=== PATIENT | female | born 1950 | race Caucasian/White ===

== ENCOUNTER 2016-09-30 06:39 | Emergency (ER) | payer MEDICARE, BC ==
[2016-09-30 07:03] VITALS: BP 100/58
--- NOTE | 2016-09-30 07:30 | EDM.PDOC ---
ED HPI GENERAL MEDICAL PROBLEM - General Chief Complaint: Eye Problems Stated Complaint: RASH IN BOTH EYES Time Seen by Provider: 09/30/16 07:00 Source of Information: Reports: Patient, RN, RN Notes Reviewed History Limitations: Reports: No Limitations - History of Present Illness INITIAL COMMENTS - FREE TEXT/NARRATIVE: Pt c/o rash around the eyes x1 week. She had blepheroplasty and once the sutures were taken out the doctor has her put cortaid cream on the upper eyelids and the next day her skin broke out with red hive like rash at the B/L eyelids, and eyebrow area. She called the eye clinic and discontinued the cortaid, and has been taking Benadryl 25mg q6hrs, but not improving. Denies pain. Reports itching. No rash anywhere else on her body. Onset: Gradual Duration: Constant, Getting Worse Location: Reports: Face Quality: Reports: Other (itching) Severity: Moderate Improves with: Reports: None Worsens with: Reports: None Context: Reports: Other (suspected topical medication) Treatments CUSTOMER PROFESSIONAL: Reports: Other (see below) Other Treatments CUSTOMER PROFESSIONAL: Benadryl - Related Data Allergies Allergy/AdvReac Type Severity Reaction Status Date / Time amoxicillin Allergy Rash Verified 09/30/16 07:04 cetirizine HCl Allergy Vomiting Verified 09/30/16 07:41 [From Zyrtec-D] clindamycin Allergy Nausea and Verified 09/30/16 07:04 Vomiting codeine Allergy Nausea Verified 09/30/16 07:04 erythromycin base Allergy Nausea Verified 09/30/16 07:04 lincomycin Allergy Nausea and Verified 09/30/16 07:04 Vomiting Penicillins Allergy Hives Verified 09/30/16 07:04 pseudoephedrine HCl Allergy Vomiting Verified 09/30/16 07:04 [From Zyrtec-D] Sulfa (Sulfonamide Allergy Rash Verified 09/30/16 07:04 Antibiotics) Home Meds: Home Meds Levothyroxine [Synthroid] 50 mcg PO ACBREAKFAST 05/16/14 [History] Magnesium 700 mg PO TID 05/16/14 [History] Potassium Chloride [Klor-Con M20] 20 meq PO TID 05/16/14 [History] Sertraline HCl [Sertraline HCl] 25 mg PO BEDTIME 05/16/14 [History] atorvaSTATin Calcium [Atorvastatin Calcium] 10 mg PO BEDTIME 05/16/14 [History] Gluc 2KCl/Chondr/Colten Hy/Hy Ac [Glucosamine & Chondroitin Cap] 1 cap PO ASDIRECTED 03/18/15 [History] L. Acidophilus/L.bulgaricus [Floranex Tablet] 1 tab PO DAILY 03/18/15 [History] Calcium Citrate/Vitamin D3 [Calcium Citrate + D] 1 tab PO DAILY 04/19/15 [ History] Cholecalciferol (Vitamin D3) [Vitamin D3] 1 tab PO DAILY 04/19/15 [History] Desonide [Desonide 0.05%] 1 squirt TOP ASDIRECTED PRN 04/19/15 [History] Multivitamins 1 tab PO DAILY 04/19/15 [History] Sertraline [Zoloft] 1 tab PO DAILY 04/19/15 [History] Past Medical History HEENT History: Reports: Other (See Below) Other HEENT History: WEARS CORRECTIVE LENSES. Impaired peripheral vison Cardiovascular History: Reports: High Cholesterol Other Cardiovascular History: HYPERLIPIDEMIA; TRICUSPID REGURGITATION Gastrointestinal History: Reports: Chronic Diarrhea Other Genitourinary History: BARTTER SYNDROME Musculoskeletal History: Reports: Arthritis Neurological History: Reports: Vertigo Psychiatric History: Reports: Anxiety, OCD Endocrine/Metabolic History: Reports: Hypothyroidism, Osteopenia Other Endocrine/Metabolic History: HYPOTHYRIODISM Other Hematologic History: B12 SERUM ELEVATION - Past Surgical History HEENT Surgical History: Reports: Tonsillectomy, Other (See Below) Other HEENT Surgeries/Procedures: Removal of excess tissue in the eye on September 05, 2016 Female Surgical History: Reports: Section Social & Family History - Tobacco Use Smoking Status *Q: Never Smoker Second Hand Smoke Exposure: No - Caffeine Use Caffeine Use: Reports: Tea - Alcohol Use Days Per Week of Alcohol Use: 0 - Recreational Drug Use Recreational Drug Use: No Drug Use in Last 12 Months: No - Living Situation & Occupation Living situation: Reports: with Family ED ROS GENERAL - Review of Systems Review Of Systems: ROS reveals no pertinent complaints other than HPI. ED EXAM GENERAL W FULL EYE - Physical Exam Exam: See Below Exam Limited By: No Limitations General Appearance: Alert, WD/WN, No Apparent Distress Eye Exam: Bilateral Eye: EOMI, Periorbital Changes, PERRL Eyelids: Bilateral: Edema (mild), Erythema (pruritic) Conjunctiva & Sclera: Bilateral: Normal Appearance Extraocular Movements: Bilateral: Intact Pupils: Normal Accommodation Pupillary Size: Bilateral: 3 mm Pupillary Reaction: Bilateral: Brisk Ears: Normal External Exam Nose: Normal Inspection Throat/Mouth: Normal Inspection Head: Atraumatic, Normocephalic Neck: Normal Inspection Respiratory/Chest: No Respiratory Distress, Normal Breath Sounds Extremities: Normal Inspection Neurological: Alert, Oriented, CN II-XII Intact, Normal Cognition, Normal Gait, No Motor/Sensory Deficits Psychiatric: Normal Affect, Normal Mood Skin Exam: Dry, Intact, Rash (periorbital erythema with mild swelling at B/L eyes) Course - Vital Signs Last Recorded V/S: Last Vital Signs Temp 36.6 C 09/30/16 06:50 Pulse 94 09/30/16 06:50 Resp 17 09/30/16 06:50 BP 100/58 L 09/30/16 06:50 Pulse Ox 100 09/30/16 06:50 Departure - Departure Time of Disposition: 07:27 Disposition: Home, Self-Care 01 Condition: good Clinical Impression: Periorbital dermatitis Contact dermatitis Qualifiers: Contact dermatitis type: unspecified Contact dermatitis trigger: unspecified trigger Qualified Code(s): L25.9 - Unspecified contact dermatitis, unspecified cause - Discharge Information Instructions: Contact Dermatitis Forms: ED Department Discharge Additional Instructions: Rx: Prednisone 20mg Rx: Loratadine 10mg May use Benadryl 25mg (over the counter) One or two tablets at bedtime as needed for itching. Follow up in clinic on Sunday for recheck.
== END 2016-09-30 07:39 | disposition home or self-care (01) ==
LOC: DL.ED 06:39
DX: H01.111 Allergic dermatitis of right upper eyelid (principal); H01.114 Allergic dermatitis of left upper eyelid; E78.00 Pure hypercholesterolemia, unspecified; M19.90 Unspecified osteoarthritis, unspecified site; F41.9 Anxiety disorder, unspecified; E03.9 Hypothyroidism, unspecified; Z98.890 Other specified postprocedural states; Z79.899 Other long term (current) drug therapy; Z88.5 Allergy status to narcotic agent; Z88.1 Allergy status to other antibiotic agents; Z88.0 Allergy status to penicillin; Z88.2 Allergy status to sulfonamides
CPT/HCPCS: 99283

== ENCOUNTER 2019-06-18 06:26 | Day surgery (SDC) | payer MEDICARE, BC ==
[~2019-06-18 06:26] MED LIST: Proparacaine 0.5% Ophth Soln 15 ML Bottle ONE
[2019-06-18] MEDS ORDERED: Midazolam 1 MG/ML 2 ML SDV IV ONE (06:27)
[2019-06-18] MEDS ORDERED: Dexamethasone 4 MG/ML SDV IV ONE (06:27)
[2019-06-18] MEDS ORDERED: Sodium Chloride 0.9% 10 ML Syringe FLUSH PRN (06:30)
[2019-06-18] MEDS ORDERED: Ondansetron 4 MG/2 ML SDV IVPUSH PRN (06:30)
[2019-06-18] MEDS ORDERED: Phenylephrine 10% Ophth Soln 5 ML Bot EYELF ONE (06:30)
[2019-06-18] MEDS ORDERED: Timolol Maleate 0.5% Ophth Soln 5 ML Bottle EYELF ONE (06:30)
[2019-06-18] MEDS ORDERED: Acetaminophen 325 MG Tab PO PRN (06:30)
[2019-06-18] MEDS ORDERED: Proparacaine 0.5% Ophth Soln 15 ML Bottle EYELF ONE (06:30)
[2019-06-18] MEDS ORDERED: Cataract Ophth Solution EYELF ONE (06:30)
[2019-06-18] MEDS ORDERED: Phenylephrine 10% Ophth Soln 5 ML Bot EYELF PRN (06:30)
[2019-06-18] MEDS ORDERED: Moxifloxacin 0.5% Ophth Soln 3 ML Bottle EYELF ONE (06:30)
[2019-06-18] MEDS ORDERED: Povidone-Iodine 5% Sterile Ophth Soln 30 ML Bottle EYELF ONE ×2 (06:30→07:54)
[2019-06-18] MEDS ORDERED: Dexamethasone/Tobramycin 0.1-0.3% Ophth Oint 3.5 GM Tube ONE (06:33)
[2019-06-18] MEDS ORDERED: Tropicamide 1% Ophth Soln 15 ML Bottle EYELF ONE (07:12)
[2019-06-18] MEDS ORDERED: Tetracaine HCl/PF 0.5% 4 ML Bottle EYELF ONE (07:54)
[2019-06-18] MEDS ORDERED: Lidocaine 1% 30 ML SDV ONE (07:54)
[2019-06-18] MEDS ORDERED: Tobramycin 0.3% Ophth Oint 3.5 GM Tube EYELF ONE (07:55)
[2019-06-18] MEDS ORDERED: Diclofenac Sodium 0.1% Ophth Soln 5 ML Bottle EYELF ONE (07:55)
[2019-06-18] MEDS ORDERED: Apraclonidine 0.5% Ophth Soln 5 ML Bot EYELF ONE (07:55)
[2019-06-18] MEDS ORDERED: Balanced Salt Solution Ophth Irrig 500 ML Bottle IOCULAR ONE (07:55)
[2019-06-18] MEDS ORDERED: Chondroitin Sulfate/Hyaluronate Sodium Ophth Inj 0.75 ML Syringe EYELF ONE (07:56)
[2019-06-18] MEDS ORDERED: Vancomycin 500 MG SDV EYELF ONE (07:56)
[2019-06-18] MEDS ORDERED: Dexamethasone/Tobramycin 0.1-0.3% Ophth Oint 3.5 GM Tube EYELF ONE (08:04)
[2019-06-18 08:58] VITALS: BP 131/71; PULSE 81
--- NOTE | 2019-06-18 14:18 | OR ---
DATE: 06/18/2019 PREOPERATIVE DIAGNOSIS: Visually significant mixed cataract, left eye. POSTOPERATIVE DIAGNOSIS: Visually significant mixed cataract, left eye. PROCEDURE: Extracapsular cataract extraction with intraocular lens implant, left eye. ANESTHESIA: Topical/local MAC. COMPLICATIONS: None. INDICATION: Ms. Crook was seen in the clinic. Examination revealed visually significant mixed cataract. Examination also revealed narrow angles. I explained the options and offered cataract surgery. I explained risks including the potential for infection, retinal detachment, loss of vision, need for additional surgery, amongst others. We discussed implant options. She has requested surgery with a toric implant. She understands that she may still require glasses for some activities, especially near work. OPERATIVE DESCRIPTION: After informed consent was obtained and the risks, benefits, and alternatives were explained, the patient was brought to the operative suite and topical anesthesia was administered. The patient was then prepped and draped in the sterile fashion and attention was placed on the left eye. A sterile lid speculum was placed into the left eye to allow operative exposure. A full-thickness paracentesis was made in the temporal portion of the operative eye. Preservative-free lidocaine 0.1 mL was injected into the anterior chamber followed by viscoelastic. A full-thickness corneal incision was then made into the anterior chamber. A bent needle cystotome was used to create a small melodie in the anterior capsule. The capsulorrhexis forceps was then used to create a 360-degree curvilinear capsulorrhexis. The nucleus was then removed using a phacoemulsification handpiece and the remaining cortical material was then removed with irrigation and aspiration handpiece. Following removal of the cortical material, the capsular bag was then inspected and noted to be free of any holes or tears. Viscoelastic was then injected into the capsular bag and the intraocular lens was inserted into the capsular bag. The implant was oriented to correspond with preoperative corneal swanson made with the patient in the upright position. The viscoelastic material was then removed from both the anterior and posterior chambers and from behind the IOL. The lens and capsular bag were then reinspected. The IOL was well centered and the capsular bag intact. The wound and paracentesis sites were inspected and hydrated with balanced saline solution. Both were found to be self-sealing. The intraocular pressure was assessed digitally and found to be within normal range. A good red reflex was noted at the completion of the procedure. No complications occurred during the operation. At the completion of the procedure, Maxitrol, Voltaren, and Iopidine drops were placed into the operative eye. A sterile eye shield was placed over the operative eye and the patient was transported to the postoperative recovery area having tolerated the procedure well. Postoperative instructions were given along with a postoperative appointment. The patient was advised to call with any questions or concerns. [facility] /[id number]
== END 2019-06-18 09:00 | disposition home or self-care (01) ==
LOC: DL.SDS 06:26
PROVIDERS: ATTEND Ophthalmology
DX: H26.9 Unspecified cataract (principal); E78.5 Hyperlipidemia, unspecified; E03.9 Hypothyroidism, unspecified; F41.9 Anxiety disorder, unspecified; Z79.899 Other long term (current) drug therapy; Z88.8 Allergy status to other drugs, medicaments and biological substances; Z88.0 Allergy status to penicillin; Z88.2 Allergy status to sulfonamides; Z88.5 Allergy status to narcotic agent
CPT/HCPCS: 00142; A9270-GY; J1100; J2001; J2250; J3370

== ENCOUNTER 2019-06-25 06:31 | Day surgery (SDC) | payer MEDICARE, BC ==
[~2019-06-25 06:31] MED LIST changes: +Acetaminophen 325 MG Tab PO PRN; +Cataract Ophth Solution EYERT ONE; +Moxifloxacin 0.5% Ophth Soln 3 ML Bottle EYERT ONE; +Ondansetron 4 MG/2 ML SDV IVPUSH PRN; +Phenylephrine 10% Ophth Soln 5 ML Bot EYERT ONE; +Phenylephrine 10% Ophth Soln 5 ML Bot EYERT PRN; +Povidone-Iodine 5% Sterile Ophth Soln 30 ML Bottle EYERT ONE; +Proparacaine 0.5% Ophth Soln 15 ML Bottle EYERT ONE; +Sodium Chloride 0.9% 10 ML Syringe FLUSH PRN; +Timolol Maleate 0.5% Ophth Soln 5 ML Bottle EYERT ONE; +Tropicamide 1% Ophth Soln 15 ML Bottle EYERT ONE
[2019-06-25] MEDS ORDERED: Sodium Chloride 0.9% 10 ML Syringe IV ONE (06:32)
[2019-06-25] MEDS ORDERED: Midazolam 1 MG/ML 2 ML SDV IV ONE (06:32)
[2019-06-25] MEDS ORDERED: Dexamethasone 4 MG/ML SDV IV ONE (06:32)
[2019-06-25] MEDS ORDERED: Dexamethasone/Tobramycin 0.1-0.3% Ophth Oint 3.5 GM Tube ONE (06:56)
[2019-06-25] MEDS ORDERED: Povidone-Iodine 5% Sterile Ophth Soln 30 ML Bottle EYERT ONE (07:52)
[2019-06-25] MEDS ORDERED: Apraclonidine 0.5% Ophth Soln 5 ML Bot EYERT ONE (07:52)
[2019-06-25] MEDS ORDERED: Tetracaine HCl/PF 0.5% 4 ML Bottle EYERT ONE (07:52)
[2019-06-25] MEDS ORDERED: Lidocaine 1% 30 ML SDV ONE (07:52)
[2019-06-25] MEDS ORDERED: Dexamethasone/Tobramycin 0.1-0.3% Ophth Oint 3.5 GM Tube EYERT ONE (07:53)
[2019-06-25] MEDS ORDERED: Diclofenac Sodium 0.1% Ophth Soln 5 ML Bottle EYERT ONE (07:53)
[2019-06-25] MEDS ORDERED: Vancomycin 500 MG SDV EYERT ONE (07:53)
[2019-06-25] MEDS ORDERED: Balanced Salt Solution Ophth Irrig 500 ML Bottle IOCULAR ONE (07:53)
[2019-06-25] MEDS ORDERED: Chondroitin Sulfate/Hyaluronate Sodium Ophth Inj 0.75 ML Syringe EYERT ONE (07:54)
[2019-06-25 11:28] VITALS: BP 107/57; PULSE 66
--- NOTE | 2019-06-25 15:13 | OR ---
DATE: 06/25/2019 PREOPERATIVE DIAGNOSIS: Visually significant mixed cataract, right eye. POSTOPERATIVE DIAGNOSIS: Visually significant mixed cataract, right eye. PROCEDURE: Extracapsular cataract extraction with intraocular lens implant, right eye. ANESTHESIA: Topical/local MAC. COMPLICATIONS: None. INDICATION: Ms. Crook was seen in the clinic. Examination revealed visually significant cataract. She is symptomatic. I offered cataract surgery, and I explained risks including, but not limited to infection, retinal detachment, loss of vision, need for additional surgery, amongst others. We discussed implant options. She has requested a toric implant. She understands that she may still require glasses for some activities following surgery. OPERATIVE DESCRIPTION: After informed consent was obtained and the risks, benefits, and alternatives were explained, the patient was brought to the operative suite and topical anesthesia was administered. The patient was then prepped and draped in the sterile fashion and attention was placed on the right eye. A sterile lid speculum was placed into the right eye to allow operative exposure. A full-thickness paracentesis was made in the temporal portion of the operative eye. Preservative-free lidocaine 0.1 mL was injected into the anterior chamber followed by viscoelastic. A full-thickness corneal incision was then made into the anterior chamber. A bent needle cystotome was used to create a small melodie in the anterior capsule. The capsulorrhexis forceps was then used to create a 360-degree curvilinear capsulorrhexis. The nucleus was then removed using a phacoemulsification handpiece and the remaining cortical material was then removed with irrigation and aspiration handpiece. Following removal of the cortical material, the capsular bag was then inspected and noted to be free of any holes or tears. Viscoelastic was then injected into the capsular bag and the intraocular lens was inserted into the capsular bag. The implant was oriented to correspond with preoperative corneal swanson made with the patient in the upright position. The viscoelastic material was then removed from both the anterior and posterior chambers and from behind the IOL. The lens and capsular bag were then reinspected. The IOL was well centered and the capsular bag intact. The wound and paracentesis sites were inspected and hydrated with balanced saline solution. Both were found to be self-sealing. The intraocular pressure was assessed digitally and found to be within normal range. A good red reflex was noted at the completion of the procedure. No complications occurred during the operation. At the completion of the procedure, Grabiel Andrade, and Iopidine drops were placed into the operative eye. A sterile eye shield was placed over the operative eye and the patient was transported to the postoperative recovery area having tolerated the procedure well. Postoperative instructions were given along with a postoperative appointment. The patient was advised to call with any questions or concerns. [facility] /[id number]
== END 2019-06-25 09:15 | disposition home or self-care (01) ==
LOC: DL.SDS 06:31
PROVIDERS: ATTEND Ophthalmology
DX: H25.811 Combined forms of age-related cataract, right eye (principal); F41.9 Anxiety disorder, unspecified; F42.9 Obsessive-compulsive disorder, unspecified; E78.5 Hyperlipidemia, unspecified; E03.9 Hypothyroidism, unspecified; Z98.890 Other specified postprocedural states; Z79.899 Other long term (current) drug therapy; Z79.890 Hormone replacement therapy; Z88.0 Allergy status to penicillin; Z88.1 Allergy status to other antibiotic agents; Z88.2 Allergy status to sulfonamides; Z88.8 Allergy status to other drugs, medicaments and biological substances
CPT/HCPCS: 00142; 66984; A9270; J1100; J2001; J2250; J3370; V2787-GY

== ENCOUNTER 2023-01-20 09:12 | Emergency (ER) | payer MEDICARE, BC ==
[2023-01-20 09:33] VITALS: BP 152/85; PULSE 95
[2023-01-20 09:57] LABS: BASOPHILS PERCENT AUTO 0.3 % (0.0-1.0); EOSINOPHILS PERCENT AUTO 0.7 % (1.0-3.0); HEMATOCRIT 40.8 % (37.0-47.0); HEMOGLOBIN 14.1 g/dL (12.0-16.0); LYMPHOCYTES PERCENT AUTO 31.1 % (20.5-50.1); MEAN CORPUSCULAR HEMOGLOBIN 29.3 pg (27.0-34.0); MEAN CORPUSCULAR HGB CONC 34.6 g/dL (33.0-35.0); MEAN CORPUSCULAR VOLUME 84.8 fL (80-100); MONOCYTES PERCENT AUTO 16.3 % (2-8); NEUTROPHILS PERCENT AUTO 51.6 % (42.2-75.2); PLATELET COUNT,PLT 249 10^3/uL (150-450); RED BLOOD CELL COUNT 4.81 10^6/uL (4.2-5.4); WHITE BLOOD CELL COUNT,WBC 2.9 10^3/uL (5.0-10.0)
[2023-01-20 10:30] LABS: A/G RATIO 0.8; ALANINE AMINOTRANSFERASE,ALT 22 U/L (14-59); ALKALINE PHOSPHATASE 77 U/L (46-116); ANION GAP 8.7 mEq/L (7-13); ASPARTATE AMNIOTRANSFERASE,AST 26 U/L (15-37); BILIRUBIN TOTAL 0.4 mg/dL (0.2-1.0); BLOOD UREA NITROGEN,BUN 5 mg/dL (7-18); BUN/CREATININE RATIO 10.4 (No establ ref range); CALCIUM 9.6 mg/dL (8.5-10.1); CARBON DIOXIDE,CO2 33 mmol/L (21-32); CHLORIDE,CL 92 mmol/L (98-107); CREATINE KINASE,CK 58 U/L (16-191); CREATININE 0.48 mg/dL (0.55-1.02); EST CRCL DRUG DOSING (CG) 74.82 mL/min; GLUCOSE RANDOM 118 mg/dL (70-99); MAGNESIUM 1.5 mg/dL (1.8-2.4); POTASSIUM,K 2.7 mmol/L (3.5-5.1); PROTEIN TOTAL,TP 8.8 g/dL (6.4-8.2); SODIUM,NA 131 mmol/L (136-145)
[2023-01-20 10:32] LABS: ACETAMINOPHEN 0 ug/mL (10-30 (Therapeutic)); C-REACTIVE PROTEIN < 0.05 ng/dL (<=0.30); ESTIMATED GFR 101 mL/min (>=60); ETHANOL BLOOD MEDICAL < 3 mg/dL (0)
[2023-01-20] MEDS ORDERED: Sodium Chloride 0.9% 1,000 ML IV ONE (10:45)
[2023-01-20] MEDS ORDERED: Potassium Chloride 20 MEQ in Premix Bag 1 BAG IV ONE (10:45)
[2023-01-20] MEDS ORDERED: Potassium Chloride 10% 20 MEQ/15 ML Soln 15 ML UD Cup PO ONE (10:46)
[2023-01-20] MEDS ORDERED: Magnesium Sulfate/Water 2 GM in Premix Bag 1 BAG IV ONE (10:46)
[2023-01-20 10:58] LABS: APPEARANCE,URINE CLEAR (CLEAR); BILIRUBIN,URINE NEGATIVE (NEGATIVE); COLOR,URINE YELLOW (YELLOW); GLUCOSE,URINE NEGATIVE (NEGATIVE); KETONES,URINE NEGATIVE (NEGATIVE); LEUKOCYTE ESTERASE,URINE NEGATIVE (NEGATIVE); NITRITE,URINE NEGATIVE (NEGATIVE); OCCULT BLOOD,URINE TRACE-INTACT (NEGATIVE); PH,URINE 7.5 (5.0-9.0); PROTEIN,URINE NEGATIVE (NEGATIVE); UROBILINOGEN,URINE 0.2 mg/dL (0.2-1.0)
[2023-01-20 10:59] LABS: AMPHETAMINES,URINE NEGATIVE (NEGATIVE); BARBITURATES,URINE NEGATIVE (NEGATIVE); BENZODIAZEPINE,URINE NEGATIVE (NEGATIVE); MDMA (ECSTASY), URINE NEGATIVE (NEGATIVE); METHADONE,URINE NEGATIVE (NEGATIVE); METHAMPHETAMINES,URINE NEGATIVE (NEGATIVE); OPIATES,URINE NEGATIVE (NEGATIVE); OXYCODONE,URINE NEGATIVE (NEGATIVE); PHENCYCLIDINE,URINE NEGATIVE (NEGATIVE); TCA,URINE NEGATIVE (NEGATIVE)
[2023-01-20 11:09] LABS: BACTERIA,URINE RARE /HPF (0-FEW/HPF); EPITHELIAL CELLS,URINE RARE /HPF (NOT SEEN); MUCUS,URINE NOT SEEN /LPF (NOT SEEN); RBC,URINE NOT SEEN /HPF (0-5); WBC,URINE NOT SEEN /HPF (0-5/HPF)
[2023-01-20] MEDS: Sodium Chloride 0.9% 10 ML Syringe FLUSH PRN ×2 (11:31→11:36)
[2023-01-20] MEDS ORDERED: ALPRAZolam 0.25 MG Tab PO ONE (13:32)
== END 2023-01-20 14:38 | disposition home or self-care (01) ==
LOC: DL.ED 09:12
DX: R23.2 Flushing (principal); T44.3X5A Adverse effect of other parasympatholytics [anticholinergics and antimuscarinics] and spasmolytics, initial encounter; E87.6 Hypokalemia; E83.42 Hypomagnesemia; E26.81 Bartter's syndrome; E03.9 Hypothyroidism, unspecified; E78.5 Hyperlipidemia, unspecified; E78.00 Pure hypercholesterolemia, unspecified; Z79.899 Other long term (current) drug therapy; Z88.0 Allergy status to penicillin; Z88.1 Allergy status to other antibiotic agents; Z88.2 Allergy status to sulfonamides; Z88.8 Allergy status to other drugs, medicaments and biological substances; Z88.5 Allergy status to narcotic agent
CPT/HCPCS: 36415; 80053; 80143; 80179; 80305-QW; 80307; 81001; 82550; 83605; 83735; 84443; 85025; 86140; 93005; 96361; 96365; 96366; 96368; 99283; 99285-25; A9270-GY; J3475; J3480; J3490; J7030

== ENCOUNTER 2023-01-22 01:50 | Inpatient (IN) | payer MEDICARE, BC ==
[2023-01-22] MEDS ORDERED: Sodium Chloride 0.9% 10 ML Syringe FLUSH PRN (02:09)
[2023-01-22] MEDS ORDERED: Ondansetron 4 MG/2 ML SDV IVPUSH ONE (02:11)
[2023-01-22 02:30] LABS: BASOPHILS PERCENT AUTO 0.3 % (0.0-1.0); EOSINOPHILS PERCENT AUTO 1.2 % (1.0-3.0); HEMATOCRIT 34.4 % (37.0-47.0); HEMOGLOBIN 12.2 g/dL (12.0-16.0); LYMPHOCYTES PERCENT AUTO 39.9 % (20.5-50.1); MEAN CORPUSCULAR HEMOGLOBIN 29.8 pg (27.0-34.0); MEAN CORPUSCULAR HGB CONC 35.5 g/dL (33.0-35.0); MEAN CORPUSCULAR VOLUME 84.1 fL (80-100); MONOCYTES PERCENT AUTO 11.4 % (2-8); NEUTROPHILS PERCENT AUTO 47.2 % (42.2-75.2); PLATELET COUNT,PLT 217 10^3/uL (150-450); RED BLOOD CELL COUNT 4.09 10^6/uL (4.2-5.4); WHITE BLOOD CELL COUNT,WBC 3.3 10^3/uL (5.0-10.0)
[2023-01-22 02:45] LABS: ALBUMIN 3.3 g/dL (3.4-5.0); ANION GAP 12.8 mEq/L (7-13); BILIRUBIN TOTAL 0.5 mg/dL (0.2-1.0); BUN/CREATININE RATIO 15.4 (No establ ref range); CALCIUM 8.8 mg/dL (8.5-10.1); CREATININE 0.52 mg/dL (0.55-1.02); EST CRCL DRUG DOSING (CG) 71.28 mL/min; MAGNESIUM 1.1 mg/dL (1.8-2.4); POTASSIUM,K 2.8 mmol/L (3.5-5.1); PROTEIN TOTAL,TP 6.9 g/dL (6.4-8.2)
[2023-01-22 02:46] LABS: A/G RATIO 0.92
[2023-01-22] MEDS ORDERED: Magnesium Sulfate/Water 2 GM in Premix Bag 1 BAG IV ONE ×2 (02:57→13:00)
[2023-01-22] MEDS: Potassium Chloride 20 MEQ in Premix Bag 1 BAG IV SCH ×2 (03:18→05:48)
[2023-01-22] MEDS: Lactated Ringers 1,000 ML IV SCH ×4 (03:18→21:08)
[2023-01-22] MEDS ORDERED: HYDROmorphone 0.5 MG/0.5 ML Syringe IVPUSH PRN (05:17)
[2023-01-22] MEDS ORDERED: Acetaminophen 325 MG Tab PO PRN (05:17)
[2023-01-22] MEDS ORDERED: Albuterol/Ipratropium 3.0-0.5 MG/3 ML Neb Soln NEB PRN (05:17)
[2023-01-22] MEDS ORDERED: Ketorolac 30 MG/ML SDV IVPUSH PRN (05:17)
[2023-01-22] MEDS ORDERED: LORazepam 2 MG/ML SDV IVPUSH ONE (05:18)
[2023-01-22] MEDS ORDERED: Flumazenil 0.1 MG/ML 5 ML MDV IVPUSH PRN (05:18)
[2023-01-22] MEDS ORDERED: Meclizine 12.5 MG Tab PO PRN (05:19)
[2023-01-22] MEDS: Magnesium Sulfate/Water 2 GM in Premix Bag 1 BAG IV ONE ×2 (07:44→08:20)
[2023-01-22] MEDS ORDERED: Potassium Chloride 20 MEQ in Premix Bag 1 BAG IV ONE (09:00)
[2023-01-22] MEDS ORDERED: ALPRAZolam 0.25 MG Tab PO PRN (12:37)
[2023-01-22] MEDS: Acetaminophen 500 MG Tab PO SCH ×3 (12:39→20:39)
[2023-01-22] MEDS: Multivitamin Tab PO SCH (12:39)
[2023-01-22] MEDS: Potassium Chloride 20 MEQ in Premix Bag 1 BAG IV ONE ×2 (12:41→12:59)
[2023-01-22] MEDS: Potassium Chloride 10 MEQ Tab.ER PO SCH ×4 (12:45→20:39)
[2023-01-22] MEDS ORDERED: hydrOXYzine HCl 25 MG Tab ONE (18:14)
[2023-01-22] MEDS ORDERED: hydrOXYzine HCl 10 MG Tab PO SCH (21:00)
[2023-01-23] MEDS: Lactated Ringers 1,000 ML IV SCH (03:28)
[2023-01-23] MEDS ORDERED: Levothyroxine 50 MCG Tab PO SCH (06:00)
[2023-01-23] MEDS ORDERED: Omeprazole 20 MG Cap.CR PO SCH (06:00)
[2023-01-23 06:22] LABS: BASOPHILS PERCENT AUTO 0.3 % (0.0-1.0); EOSINOPHILS PERCENT AUTO 0.5 % (1.0-3.0); HEMATOCRIT 32.1 % (37.0-47.0); HEMOGLOBIN 11.2 g/dL (12.0-16.0); LYMPHOCYTES PERCENT AUTO 49.2 % (20.5-50.1); MEAN CORPUSCULAR HEMOGLOBIN 29.8 pg (27.0-34.0); MEAN CORPUSCULAR HGB CONC 34.9 g/dL (33.0-35.0); MEAN CORPUSCULAR VOLUME 85.4 fL (80-100); MONOCYTES PERCENT AUTO 13.5 % (2-8); NEUTROPHILS PERCENT AUTO 36.5 % (42.2-75.2); PLATELET COUNT,PLT 254 10^3/uL (150-450); RED BLOOD CELL COUNT 3.76 10^6/uL (4.2-5.4); WHITE BLOOD CELL COUNT,WBC 3.9 10^3/uL (5.0-10.0)
[2023-01-23 06:46] LABS: ALBUMIN 2.8 g/dL (3.4-5.0); BILIRUBIN TOTAL 0.4 mg/dL (0.2-1.0); BUN/CREATININE RATIO 9.5 (No establ ref range); CALCIUM 8.3 mg/dL (8.5-10.1); CREATININE 0.42 mg/dL (0.55-1.02); EST CRCL DRUG DOSING (CG) 86.3 mL/min; MAGNESIUM 1.4 mg/dL (1.8-2.4); PROTEIN TOTAL,TP 6.1 g/dL (6.4-8.2)
[2023-01-23 06:51] LABS: A/G RATIO 0.85
[2023-01-23] MEDS ORDERED: Magnesium Sulfate/Water 2 GM in Premix Bag 1 BAG IV ONE (07:54)
[2023-01-23] MEDS ORDERED: Potassium Chloride 20 MEQ in Premix Bag 1 BAG IV ONE (08:01)
[2023-01-23] MEDS: Potassium Chloride 10 MEQ Tab.ER PO SCH (08:26)
[2023-01-23] MEDS: Multivitamin Tab PO SCH (08:27)
[2023-01-23] MEDS: Acetaminophen 500 MG Tab PO SCH (08:36)
[2023-01-23] MEDS ORDERED: Saccharomyces Boulardii (Probiotic) 250 MG Cap PO SCH (09:00)
[2023-01-23] MEDS ORDERED: Magnesium Oxide 400 MG Tab PO SCH (09:00)
[2023-01-23] MEDS ORDERED: Sertraline 50 MG Tab PO SCH (09:00)
[2023-01-23] MEDS ORDERED: Potassium Chloride 10 MEQ Tab.ER PO ONE (09:10)
[2023-01-23 12:03] VITALS: BP 108/63; PULSE 86
== END 2023-01-23 12:25 | disposition home or self-care (01) | DRG 644 ==
LOC: DL.ED 01:50 → DL.MS 03:26 → DL.ED 03:38
PROVIDERS: ADMIT Internal Medicine; ATTEND Internal Medicine
DX: R11.2 Nausea with vomiting, unspecified (principal); E26.81 Bartter's syndrome; E87.1 Hypo-osmolality and hyponatremia; E78.00 Pure hypercholesterolemia, unspecified; E87.6 Hypokalemia; H81.10 Benign paroxysmal vertigo, unspecified ear; M19.90 Unspecified osteoarthritis, unspecified site; F41.9 Anxiety disorder, unspecified; E86.0 Dehydration; E83.42 Hypomagnesemia; K52.9 Noninfective gastroenteritis and colitis, unspecified; F32.A Depression, unspecified; E87.8 Other disorders of electrolyte and fluid balance, not elsewhere classified; R73.9 Hyperglycemia, unspecified; M81.0 Age-related osteoporosis without current pathological fracture; E88.09 Other disorders of plasma-protein metabolism, not elsewhere classified; Z88.1 Allergy status to other antibiotic agents; Z88.2 Allergy status to sulfonamides; Z88.8 Allergy status to other drugs, medicaments and biological substances; Z88.5 Allergy status to narcotic agent; Z87.440 Personal history of urinary (tract) infections; Z98.49 Cataract extraction status, unspecified eye; Z90.49 Acquired absence of other specified parts of digestive tract; Z98.890 Other specified postprocedural states; E78.2 Mixed hyperlipidemia; E03.9 Hypothyroidism, unspecified; Z79.899 Other long term (current) drug therapy; F10.229 Alcohol dependence with intoxication, unspecified; F15.10 Other stimulant abuse, uncomplicated; F12.10 Cannabis abuse, uncomplicated
CPT/HCPCS: 36415; 80053; 83690; 83735; 85025; 93010; 99284; J2405; J3480; J7120; A9270-GY; J2060; J3475; J3490